=== PATIENT | female | born 1965 | race African-American/Black ===

== ENCOUNTER 2016-09-15 16:18 | Emergency (ER) | payer OTHER ==
[~2016-09-15] VITALS: Ht 152.4 cm; Wt 68.0 kg
[2016-09-15] MEDS ORDERED: NOVOLOG100 UNIT/1 SUBQ (16:47)
[2016-09-15] MEDS ORDERED: LANTUS100 UNIT/M SUBQ (16:47)
[2016-09-15] MEDS ORDERED: LIPITOR40 MG PO (16:48)
[2016-09-15] MEDS ORDERED: COZAAR 50 MG TA50 MG PO (16:48)
[2016-09-15] MEDS ORDERED: GLUCOPHAGE1000 MG PO (16:48)
[2016-09-15] MEDS ORDERED: CELEXA20 MG PO (16:49)
[2016-09-15 17:08] LABS: ABSOLUTE NEUTROPHILS 4.8 thou/uL (1.4-8.2); BASOPHILS 0.9 % (0.0-2.0); EOSINOPHILS 0.5 % (0.0-3.0); HEMATOCRIT 39.2 % (37.0-47.0); HEMOGLOBIN 12.9 gm/dL (12.0-15.0); MANUAL DIFF NO; MCH 29.9 pg (26.0-34.0); MCV 90.8 fL (80.0-100.0); MONOCYTES 3.5 % (1.0-8.0); PLATELET COUNT 287 thou/uL (150-400); POLYS 75.1 % (36.0-66.0); RBC 4.32 mil/uL (4.20-5.00); RDW 12.8 % (10.5-14.5); WBC 6.4 thou/uL (4.0-11.0)
[2016-09-15 17:12] LABS: CALCIUM 8.8 mg/dL (8.5-10.1); CREATININE 0.9 mg/dL (0.6-1.0); POTASSIUM 3.8 mmol/L (3.5-5.1)
[2016-09-15 17:17] LABS: ALBUMIN 3.7 g/dL (3.4-5.0); MAGNESIUM 1.6 mg/dL (1.8-2.4); TOTAL BILIRUBIN 0.3 mg/dL (<0.1-1.0); TOTAL PROTEIN 8.1 g/dL (6.4-8.2)
[2016-09-15] MEDS ORDERED: ONDANSETRON HCL4 M2 PO (19:05)
[2016-09-15] MEDS ORDERED: IBUPROFEN 600600 M1 PO (19:05)
[2016-09-15 19:45] VITALS: BP 128/72
== END 2016-09-15 19:45 | disposition home or self-care (01) ==
LOC: ER 16:18
PROVIDERS: Physician Assistant
DX: R51 Headache (principal); R11.2 Nausea with vomiting, unspecified; F10.99 Alcohol use, unspecified with unspecified alcohol-induced disorder; Z88.5 Allergy status to narcotic agent; Z88.0 Allergy status to penicillin; Z88.2 Allergy status to sulfonamides; Z88.6 Allergy status to analgesic agent